=== PATIENT | female | born 1980 | race African-American/Black ===

== ENCOUNTER 2018-07-24 19:25 | Emergency (ER) | payer SELFPAY ==
[2018-07-24] MEDS ORDERED: ASPIRIN 81 MG CHEWABLE TABLET ONE (20:45)
[2018-07-24 21:23] LABS: ALT/SGPT 16 U/L (12-78); AST/SGOT 15 U/L (15-37); Albumin 3.7 g/dL (3.4-5.0); Alkaline Phosphatase 69 U/L (45-117); BUN Blood Urea Nitrogen 9 mg/dL (7-18); Bicarbonate 27 mmol/L (21-32); Bilirubin Direct < 0.1 mg/dL (0-0.2); Bilirubin Total 0.3 mg/dL (0.2-1.0); CKMB Creatine Kinase MB < 1.0 ng/mL (0.3-3.6); Creatine Phosphokinase 70 U/L (26-192); Glucose Level 91 mg/dL (74-106); Magnesium 2.2 mg/dL (1.8-2.4); NT PRO-BNP 27 pg/mL (<125); Potassium 3.8 mmol/L (3.5-5.1); Protein, Total 8.1 g/dL (6.4-8.2); Sodium Level 138 mmol/L (136-145); Troponin (Emerg Dept Use Only) < 0.02 ng/mL (0.0-0.045)
[2018-07-24 21:29] LABS: Absolute Lymphocytes (CBC) 2.5 K/uL (0.7-4.9); Absolute Monocytes 0.4 K/uL (0.1-1.3); Absolute Neutrophil 4.4 K/uL (1.8-8.0); Basophils % 0.5 % (0-1.3); Eosinophils % 2.2 % (0-4.4); Hematocrit 42.5 % (36.0-45.0); Lymphocytes % 32.7 % (15.3-44.8); MCH 29.4 pg (27.0-35.0); MCV 86.7 fL (80-100); MPV 8.1 fL (7.6-11.3); Monocytes % 5.9 % (3.3-12.3)
[2018-07-24 21:40] LABS: Protime INR 1.05
--- NOTE | 2018-07-24 21:42 | RAD REPORT ---
EXAM DESCRIPTION: RAD - Chest Single View - 07/24/2018 8:59 pm CLINICAL HISTORY: Chest pain COMPARISON: None. TECHNIQUE: AP portable chest image was obtained 8 hours . FINDINGS: Lungs are clear. Heart and vasculature are normal. No measurable pleural effusion and no p neumothorax. No gross bony abnormality seen. No acute aortic findings suspected. IMPRESSION: No acute cardiopulmonary process.
[2018-07-24 22:16] LABS: Blood Morphology Comment NOT SEEN (NOT SEEN); Platelet Estimate ADEQ; Urine White Blood Cell Casts OK
--- NOTE | 2018-07-24 23:37 | ER ---
Nurse's Notes [facility] Name: Sharon Fernandes Age: 37 yrs Sex: Female : 1980 Arrival Date: 07/24/2018 Time: 19:30 Bed 17 Private MD: Diagnosis: Chest pain, unspecified Presentation: 07/24 19:31 Presenting complaint: Patient states: I took my anxiety medication late today and I was tl2 very stressed out at work and I think I had an anxiety attack. I had a little bit of chest pain but it's gone now. Transition of care: patient was not received from another setting of care. Onset of symptoms was July 24, 2018. Risk Assessment: Do you want to hurt yourself or someone else? Patient reports no desire to harm self or others. Initial Sepsis Screen: Does the patient meet any 2 criteria? No. Patient's initial sepsis screen is negative. Does the patient have a suspected source of infection? No. Patient's initial sepsis screen is negative. Care prior to arrival: None. 19:31 Method Of Arrival: EMS: [facility] tl2 19:31 Acuity: LIN 3 tl2 Triage Assessment: 19:33 General: Appears in no apparent distress. uncomfortable, Behavior is cooperative, tl2 appropriate for age, anxious. Pain: Complains of pain in chest. Neuro: Level of Consciousness is awake, alert, obeys commands, Oriented to person, place, time, situation. Cardiovascular: Denies Pt denies chest pain at this time. Respiratory: Airway is patent Respiratory effort is even, unlabored, Respiratory pattern is regular, symmetrical. GI: No signs and/or symptoms were reported involving the gastrointestinal system. : No signs and/or symptoms were reported regarding the genitourinary system. Derm: Skin is pink, warm \T\ dry. 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 - Social history:: Smoking status: Patient/guardian denies using tobacco. - Ebola Screening: : No symptoms or risks identified at this time. Screenin:37 Abuse screen: Denies threats or abuse. Nutritional screening: No deficits noted. tl2 Tuberculosis screening: No symptoms or risk factors identified. Fall Risk None identified. Assessment: 19:45 Reassessment: Patient and/or family updated on plan of care and expected duration. Pain tl1 level reassessed. Patient is alert, oriented x 3, equal unlabored respirations, skin warm/dry/pink. Patient denies pain at this time. Patient states feeling better. General: Appears in no apparent distress. Behavior is calm, cooperative, appropriate for age. Pain: Denies pain. Neuro: Level of Consciousness is awake, alert, obeys commands, Oriented to person, place, time, situation. Cardiovascular: Denies chest pain. Respiratory: Airway is patent Trachea midline Respiratory effort is even, unlabored, Respiratory pattern is regular, Breath sounds are clear bilaterally. GI: Abdomen is non-distended, Bowel sounds present X 4 quads. Abd is soft and non tender X 4 quads. : No signs and/or symptoms were reported regarding the genitourinary system. EENT: No signs and/or symptoms were reported regarding the EENT system. Derm: No signs and/or symptoms reported regarding the dermatologic system. Vital Signs: 19:33 BP 125 / 101; Pulse 86; Resp 20; Pulse Ox 100% on R/A; Weight 82.55 kg; Height 5 ft. 3 tl2 in. (160.02 cm); Pain 1/10; 21:00 BP 113 / 86; Pulse 100; Resp 16; Pulse Ox 97% on R/A; Pain 0/10; tl1 22:10 BP 137 / 95; Pulse 84; Resp 17; Temp 98.5; Pulse Ox 100% ; Pain 0/10; tl1 23:45 BP 126 / 91; Pulse 82; Resp 17; Temp 98.5; Pulse Ox 98% ; Pain 0/10; tl1 19:33 Body Mass Index 32.24 (82.55 kg, 160.02 cm) tl2 ED Course: 19:30 Patient arrived in ED. tl2 19:32 Triage completed. tl2 19:33 Arm band placed on right wrist. tl2 19:37 Patient has correct armband on for positive identification. Bed in low position. Call tl2 light in reach. Side rails up X2. 19:37 EKG done. tl2 20:28 Pineda Morris PA is PHCP. cp 20:28 Shant Carrillo MD is Attending Physician. cp 20:54 No provider procedures requiring assistance completed. Inserted saline lock: 22 gauge tl1 in left Blood collected. 21:25 XRAY Chest (1 view) In Process Unspecified. EDMS 23:35 Chava Tian MD is Referral Physician. cp 23:42 Alexia Melvin, RN is Primary Nurse. tl1 23:44 IV discontinued, intact, bleeding controlled, No redness/swelling at site. Pressure tl1 dressing applied. Administered Medications: 20:40 Drug: Aspirin Chewable Tablet 324 mg Route: PO; tl1 22:48 Follow up: Response: No adverse reaction tl2 Outcome: 23:35 Discharge ordered by . cp 23:44 Discharged to home ambulatory, with friend. tl1 23:44 Condition: good 23:44 Discharge instructions given to patient, Instructed on discharge instructions, follow up and referral plans. Demonstrated understanding of instructions, follow-up care. 23:52 Patient left the ED. tl1 Signatures: Dispatcher [employer] EDHI Alexia Melvin, RN RN tl1 Pineda Morris PA PA cp Heavenly Sparks RN RN tl2
--- NOTE | 2018-07-24 23:37 | EDPHYS ---
Physician Documentation [facility] Name: Sharon Fernandes Age: 37 yrs Sex: Female : 1980 Arrival Date: 07/24/2018 Time: 19:30 Bed 17 Private MD: ED Physician Shant Carrillo HPI: 07/24 20:39 This 37 yrs old Black Female presents to ER via EMS with complaints of Anxiety. cp 20:39 The patient or guardian reports chest pain that is located primarily in the anterior cp chest wall, bilaterally. 20:39 The pain does not radiate. Associated signs and symptoms: Pertinent negatives: cp abdominal pain, cough, diaphoresis, dizziness, lower extremity pain, lower extremity swelling, shortness of breath, syncope, vomiting. The chest pain is described as a pressure. Duration: The patient or guardian reports a single episode, that is now resolved. Patient reports episode of chest pain that started at work after becoming upset when talking with her boss. Patient reports history of anxiety and similar pain last night in bed after becoming upset when talking with . 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 - Social history:: Smoking status: Patient/guardian denies using tobacco. - Ebola Screening: : No symptoms or risks identified at this time. ROS: 20:45 Constitutional: Negative for body aches, chills, fever, poor PO intake. cp 20:45 Eyes: Negative for injury, pain, redness, and discharge. cp 20:45 ENT: Negative for drainage from ear(s), ear pain, sore throat, difficulty swallowing, difficulty handling secretions. 20:45 Cardiovascular: Positive for chest pain, Negative for edema, palpitations. 20:45 Respiratory: Negative for cough, dyspnea on exertion, pleurisy, shortness of breath, wheezing. 20:45 Abdomen/GI: Negative for abdominal pain, nausea, vomiting, and diarrhea, black/tarry stool, rectal bleeding. 20:45 Back: Negative for pain at rest, pain with movement, radiated pain. 20:45 Skin: Negative for cellulitis, rash. 20:45 Neuro: Negative for altered mental status, dizziness, headache, numbness, syncope, near syncope, weakness. 20:45 Psych: Negative for depression. 20:45 All other systems are negative. Exam: 19:35 ECG was reviewed by the Attending Physician. cp 20:48 Constitutional: The patient appears in no acute distress, alert, awake, comfortable, cp non-diaphoretic, non-toxic, well developed, well nourished. 20:48 Head/Face: Normocephalic, atraumatic. Eyes: Pupils equal round and reactive to light, cp extra-ocular motions intact. Lids and lashes normal. Conjunctiva and sclera are non-icteric and not injected. Cornea within normal limits. Periorbital areas with no swelling, redness, or edema. ENT: Nares patent. No nasal discharge, no septal abnormalities noted. Tympanic membranes are normal and external auditory canals are clear. Oropharynx with no redness, swelling, or masses, exudates, or evidence of obstruction, uvula midline. Mucous membranes moist. Neck: Trachea midline, no thyromegaly or masses palpated, and no cervical lymphadenopathy. Supple, full range of motion without nuchal rigidity, or vertebral point tenderness. No Meningismus. Chest/axilla: Normal chest wall appearance and motion. Nontender with no deformity. No lesions are appreciated. Cardiovascular: Regular rate and rhythm with a normal S1 and S2. No gallops, murmurs, or rubs. Normal PMI, no JVD. No pulse deficits. Respiratory: Lungs have equal breath sounds bilaterally, clear to auscultation and percussion. No rales, rhonchi or wheezes noted. No increased work of breathing, no retractions or nasal flaring. Abdomen/GI: Soft, non-tender, with normal bowel sounds. No distension or tympany. No guarding or rebound. No evidence of tenderness throughout. Skin: Warm, dry with normal turgor. Normal color with no rashes, no lesions, and no evidence of cellulitis. Neuro: Awake and alert, GCS 15, oriented to person, place, time, and situation. Cranial nerves II-XII grossly intact. Motor strength 5/5 in all extremities. Sensory grossly intact. Cerebellar exam normal. Normal gait. 23:02 ECG was reviewed by the Attending Physician. cp Vital Signs: 19:33 BP 125 / 101; Pulse 86; Resp 20; Pulse Ox 100% on R/A; Weight 82.55 kg; Height 5 ft. 3 tl2 in. (160.02 cm); Pain 1/10; 21:00 BP 113 / 86; Pulse 100; Resp 16; Pulse Ox 97% on R/A; Pain 0/10; tl1 22:10 BP 137 / 95; Pulse 84; Resp 17; Temp 98.5; Pulse Ox 100% ; Pain 0/10; tl1 23:45 BP 126 / 91; Pulse 82; Resp 17; Temp 98.5; Pulse Ox 98% ; Pain 0/10; tl1 19:33 Body Mass Index 32.24 (82.55 kg, 160.02 cm) tl2 MDM: 20:28 Patient medically screened. cp 21:00 Differential diagnosis: abnormal EKG, acute myocardial infarction, anxiety, chest wall cp pain, pericarditis, pneumonia, pneumothorax, pulmonary embolus, stable angina, thoracic aortic disection, unstable angina. 23:33 Data reviewed: vital signs, nurses notes, lab test result(s), EKG, radiologic studies, cp plain films. 23:33 Test interpretation: by ED physician or midlevel provider: ECG, plain radiologic cp studies. Special discussion: Based on the patient's history, exam, and Dx evaluation, there is no indication for emergent intervention or inpatient Tx. It is understood by the patient/guardian that if the Sx's persist or worsen they need to return immediately for re-evaluation. ED course: VSS. No reported chest pain while in ED. Will discharge to home for continued monitoring. 07/24 20:34 Order name: Basic Metabolic Panel cp 07/24 20:34 Order name: CBC with Diff cp 07/24 20:34 Order name: Ckmb; Complete Time: 22:02 cp 07/24 20:34 Order name: CPK; Complete Time: 22:02 cp 07/24 20:34 Order name: LFT's; Complete Time: 22:02 cp 07/24 22:02 Interpretation: Normal except: GLOB 4.4; A/G 0.8. cp 07/24 20:34 Order name: Magnesium; Complete Time: 22:02 cp 07/24 20:34 Order name: NT PRO-BNP; Complete Time: 22:02 cp 07/24 20:34 Order name: PT-INR; Complete Time: 22:02 cp 07/24 20:34 Order name: Ptt, Activated; Complete Time: 22:02 cp 07/24 20:34 Order name: Troponin (emerg Dept Use Only); Complete Time: 22:02 cp 07/24 22:02 Interpretation: TROPED < 0.02; Reviewed. cp 07/24 21:23 Order name: Basic Metabolic Panel; Complete Time: 22:02 EDMS 07/24 21:23 Order name: CBC with Automated Diff; Complete Time: 22:39 EDMS 07/24 22:12 Interpretation: Normal except: RBC 4.90; MCV 86.7; MCH 29.4. cp 07/24 21:38 Order name: CBC Smear Scan; Complete Time: 22:39 EDMS 07/24 22:39 Order name: Troponin I cp 07/24 20:34 Order name: XRAY Chest (1 view); Complete Time: 22:02 cp 07/24 20:34 Order name: EKG; Complete Time: 21:24 cp 07/24 20:34 Order name: Cardiac monitoring; Complete Time: 20:47 cp 07/24 20:34 Order name: EKG - Nurse/Tech; Complete Time: 20:47 cp 07/24 20:34 Order name: O2 Per Protocol; Complete Time: 20:47 cp 07/24 20:34 Order name: O2 Sat Monitoring; Complete Time: 20:47 cp 07/24 22:39 Order name: EKG - Nurse/Tech; Complete Time: 22:47 cp EC:35 Rate is 85 beats/min. Rhythm is regular. CT interval is normal. QRS interval is normal. cp Interpreted by me. Reviewed by me. 23:02 Rate is 74 beats/min. Rhythm is regular. CT interval is normal. QRS interval is normal. cp QT interval is normal. No ST changes noted. Interpreted by me. Reviewed by me. Administered Medications: 20:40 Drug: Aspirin Chewable Tablet 324 mg Route: PO; tl1 22:48 Follow up: Response: No adverse reaction tl2 Disposition: 07/24/18 23:35 Discharged to Home. Impression: Chest pain, unspecified. - Condition is Stable. - Discharge Instructions: Nonspecific Chest Pain, Aspirin and Your Heart. - Medication Reconciliation Form, Thank You Letter, Antibiotic Education, Prescription Opioid Use, Work release form form. - Follow up: Chava Tian MD; When: 2 - 3 days; Reason: chest pain. - Problem is new. - Symptoms are resolved. Addendum: 07/26/2018 08:17 Co-signature as Attending Physician, Shant Carrillo MD I agree with the assessment and w a plan of care. Signatures: Dispatcher [employer] EDCO Alexia Melvin RN RN tl1 Pineda Morris PA PA cp Heavenly Sparks RN RN tl2 Shant Carrillo MD MD wa Corrections: (The following items were deleted from the chart) 07/24 23:52 23:35 07/24/2018 23:35 Discharged to Home. Impression: Chest pain, unspecified. tl1 Condition is Stable. Forms are Medication Reconciliation Form, Thank You Letter, Antibiotic Education, Prescription Opioid Use. Follow up: Chava Tian; When: 2 - 3 days; Reason: chest pain. Problem is new. Symptoms are resolved. cp
--- NOTE | 2018-07-26 08:57 | EKG ---
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
--- NOTE | 2018-07-26 08:57 | EKG ---
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
== END 2018-07-24 23:52 | disposition home or self-care (01) ==
LOC: ER 19:25
DX: R07.9 Chest pain, unspecified (principal); F41.9 Anxiety disorder, unspecified; E11.9 Type 2 diabetes mellitus without complications; Z79.4 Long term (current) use of insulin
CPT/HCPCS: 36415; 71045; 80048; 80076; 82550; 82553; 83735; 83880; 84484; 85025; 85610; 85730; 93005; 99284